=== PATIENT | male | born 1980 | race Caucasian/White ===

== ENCOUNTER 2017-02-19 08:19 | Emergency (ER) | payer BC ==
[~2017-02-19] VITALS: Ht 182.9 cm; Wt 100.0 kg
[2017-02-19] MEDS ORDERED: DOCUSATE SODIUM 100 MG CAPSULE PO ONE (09:15)
[2017-02-19 09:50] VITALS: BP 132/76
== END 2017-02-19 10:08 | disposition home or self-care (01) ==
LOC: EMS 08:21
DX: K59.00 Constipation, unspecified (principal)
CPT/HCPCS: 74022; 99284